=== PATIENT | male | born 1960 | race Two or more races ===

== ENCOUNTER → 2022-09-05 | Outpatient (CLI) | payer OTHER ==
[~2022-09-05] VITALS: Ht 185.4 cm; Wt 129.3 kg
[~2022-09-05] MED LIST: REGADENOSON 0.4 MG/5 ML SYRG IV ONE
[2022-09-05 10:29] VITALS: BP 114/85
== END | disposition home or self-care (01) ==
LOC: XYW 09:46
PROVIDERS: ATTEND Specialist
DX: I50.9 Heart failure, unspecified (principal)
CPT/HCPCS: 78452; 93017; A9500; J2785